=== PATIENT | female | born 1935 | race Caucasian/White ===

== ENCOUNTER → 2016-11-24 | Outpatient (CLI) | payer OTHER, MEDICARE | LOC: FIMAGING 14:33 | PROVIDERS: ATTEND Internal Medicine | DX: M48.06 Spinal stenosis, lumbar region (principal); M48.04 Spinal stenosis, thoracic region; M43.16 Spondylolisthesis, lumbar region; M51.34 Other intervertebral disc degeneration, thoracic region; M51.36 Other intervertebral disc degeneration, lumbar region; M51.37 Other intervertebral disc degeneration, lumbosacral region; M12.88 Other specific arthropathies, not elsewhere classified, other specified site ==

== ENCOUNTER → 2017-04-14 | Outpatient (CLI) | payer OTHER, MEDICARE | LOC: CIMAGING 10:47 | PROVIDERS: ATTEND Internal Medicine | DX: R10.31 Right lower quadrant pain (principal); Z78.0 Asymptomatic menopausal state; Z79.890 Hormone replacement therapy; Z90.710 Acquired absence of both cervix and uterus | CPT/HCPCS: 76856-PO ==

== ENCOUNTER → 2017-05-02 | Outpatient (CLI) | payer OTHER, MEDICARE | LOC: BRMIMAGING 09:20 | PROVIDERS: ATTEND Internal Medicine Rheumatology | DX: M81.0 Age-related osteoporosis without current pathological fracture (principal) ==

== ENCOUNTER → 2017-05-17 | Outpatient (CLI) | payer OTHER, MEDICARE | LOC: CIMAGING 08:55 | PROVIDERS: ATTEND Internal Medicine | DX: J98.4 Other disorders of lung (principal) | CPT/HCPCS: 71020; G0463 ==

== ENCOUNTER → 2017-05-24 | Outpatient (CLI) | payer OTHER, MEDICARE | LOC: CIMAGING 10:17 | PROVIDERS: ATTEND Internal Medicine | DX: R06.2 Wheezing (principal); E04.9 Nontoxic goiter, unspecified | CPT/HCPCS: 71250-PO ==

== ENCOUNTER → 2017-05-25 | Outpatient (CLI) | payer OTHER, MEDICARE | LOC: CIMAGING 07:53 | PROVIDERS: ATTEND Internal Medicine | DX: E04.2 Nontoxic multinodular goiter (principal) | CPT/HCPCS: 76536-PO; 84443-PO ==

== ENCOUNTER 2017-05-26 17:09 | Emergency (ER) | payer OTHER, MEDICARE ==
[2017-05-26] MEDS ORDERED: SKIN ADHESIVE (DERMABOND) 1 EACH TP ONE (17:52)
--- NOTE | 2017-05-26 18:05 | EDPHY ---
H & P Time Seen by Provider: 05/26/17 17:46 HPI/ROS: 81-year-old female presents complaining of laceration to her right 4th toe. She states she was preparing Thanksgiving dinner and dropped a knife on her foot accidentally. She is able to wiggle with toe, she denies numbness or tingling in her foot. Review of systems As per HPI General no fever no chills no weakness HEENT no eye pain no eye discharge. No eye redness, no sore throat Respiratory no cough, no shortness of breath Cardiac no chest pain, no peripheral edema GI no abdominal pain, no diarrhea, no constipation, no nausea, no vomiting no flank pain, no hematuria, no dysuria Musculoskeletal no myalgias, no joint pain Heme no easy bruising, no easy bleeding Endo no polyuria, no polydipsia Skin no rashes, no pruritus Neuro no syncope, no dizziness, no headaches Psych is no suicidal ideation, no homicidal ideation Past Medical/Surgical History: GERD, hypertension, hyperlipidemia, atrial fibrillation, congestive heart failure, aortic valve replacement Social History: Denies alcohol or drug use Smoking Status: Former smoker Physical Exam: 81-year-old female Alert and oriented in no acute distress nontoxic appearance, afebrile Atraumatic normocephalic Neck no JVD Lungs clear to auscultation, no respiratory distress Heart regular rate and rhythm Extremities no cyanosis clubbing edema Except Right foot, right 4th toe, 1 cm non gaping laceration at dorsal aspect of right 4th toe, full range of motion, good capillary refill, sensation intact Constitutional: Initial Vital Signs Temperature (C) 36.9 C 05/26/17 17:18 Heart Rate 83 05/26/17 17:18 Respiratory Rate 18 05/26/17 17:18 Blood Pressure 155/87 H 05/26/17 17:18 O2 Sat (%) 94 05/26/17 17:18 O2 Delivery Mode Room Air Allergies/Adverse Reactions: codeine Allergy (Verified 05/26/17 17:17) erythromycin base [Erythromycin Base] Allergy (Verified 05/26/17 17:17) hydromorphone HCl [From Dilaudid] Allergy (Verified 05/26/17 17:17) oxycodone HCl [From Percocet] Allergy (Verified 05/26/17 17:17) oxycodone terephthalate [From Percodan] Allergy (Verified 05/26/17 17:17) Home Medications: Medication Instructions Recorded Calcium Carbonate [Oyster Shell 1,000 mg PO BID 05/29/13 Calcium 500 mg (OTC)] ESZOPICLONE [Lunesta] 1 mg PO HS PRN 05/29/13 Fish Oil/Dha/Epa [Fish Oil 1,200 1 each PO DAILY 05/29/13 mg Fish Oil] Furosemide [Lasix] 40 mg PO DAILY 05/29/13 Omeprazole 20 mg PO DAILY PRN 05/29/13 Potassium Cl [Klor-Con 10 meq (RX)] 20 meq PO DAILY 05/29/13 Tramadol HCl 100 mg PO BID PRN 05/29/13 Medical Decision Making Procedures: Procedure note-laceration The wound was irrigated with copious amounts of saline. Patient tolerated procedure well. ED Course/Re-evaluation: Patient seen and evaluated for laceration to right 4th toe dorsal aspect non gaping Impression To laceration suitable for adhesive repair Plan Adhesive repair Discharge home Follow-up PCP Differential Diagnosis: Laceration, abrasion, contusion Departure - Departure Disposition: Home, Routine, Self-Care Clinical Impression: Toe laceration Condition: Good Instructions: Laceration (ED), Skin Adhesive Care (ED) Referrals: Keshawn Pradhan MD [Primary Care Provider] - As per Instructions
[2017-05-26 18:09] VITALS: BP 148/74; PULSE 82; RESP 19; TEMP 98.2; O2SAT 95
== END 2017-05-26 18:16 | disposition home or self-care (01) ==
LOC: CED 17:09
PROC: 0HQMXZZ Repair Right Foot Skin, External Approach (ICD-10-PCS; principal; 2017-05-26)
DX: S91.114A Laceration without foreign body of right lesser toe(s) without damage to nail, initial encounter (principal); I11.0 Hypertensive heart disease with heart failure; I50.9 Heart failure, unspecified; Z87.891 Personal history of nicotine dependence; W26.0XXA Contact with knife, initial encounter

== ENCOUNTER → 2017-11-17 | Outpatient (CLI) | payer OTHER, MEDICARE | LOC: CIMAGING 15:46 | PROVIDERS: ATTEND Internal Medicine | DX: M25.522 Pain in left elbow (principal) | CPT/HCPCS: 73070-PO ==

== ENCOUNTER 2017-12-09 08:15 | Emergency (ER) | payer OTHER, MEDICARE ==
--- NOTE | 2017-12-09 08:33 | EDPHY ---
HPI/HX/ROS/PE/MDM Narrative: CHIEF COMPLAINT: "I had a lousy night's sleep. Everything turned black and then I woke up." HPI: The patient is an 82 y/o female with a history of valve replacement and atrial fibrillation who arrives in the ED for evaluation stating, "I was sleeping and all the sudden everything turned black and then I woke up." She does not think she was having a dream and is adamant she was not awake when this occurred. She felt scared, but otherwise cannot describe this event further. She has been feeling normal apart from possible tendonitis in her arm. She denies chest pain, dyspnea, fever, cough, cold symptoms, sore throat, rhinorrhea, recent illness, or recent trauma. She does note she felt 3-4 "extra strong heart beats" last night and feels like she could be dehydrated this morning. She had a fainting episode 2 years ago that her mrb engineer attributed to micturition syncope, but it's not clear that the event this morning was similar. She spoke with Dr. Miller from [facility] this morning and was advised to come into the ED and that a mrb engineer from their group would evaluate her here. REVIEW OF SYSTEMS: Aside from elements discussed in the HPI, a comprehensive 10-point review of systems was reviewed and is negative. PMH: 1. Valve replacement due to aortic stenosis 2. Paroxysmal atrial fibrillation 3. Diastolic heart failure 4. Chronic hypertension 5. Hyperlipidemia 6. GERD Prior medical records reviewed including admission 05/29/13 for shortness of breath. SOCIAL HISTORY: From [place]. at bedside. Contact Center Professional: Dr. Alvarado PHYSICAL EXAM: General:Patient is alert, in no acute distress. ENT:Eyes are normal to inspection. ENT inspection normal. Neck: Normal inspection. Full range of motion. Respiratory:No respiratory distress. Breath sounds normal bilaterally. Cardiovascular: Regular rate and rhythm. Strong peripheral pulses. Normal cap refill. Abdomen:The abdomen is nontender to palpation. There are no peritoneal signs. Back: Normal to inspection. No tenderness to palpation. Skin: Normal color. No rash. Warm and dry. Extremities: Normal appearance. Full range of motion. Neuro: Oriented x3. Normal motor function. Normal sensory function. ED Course: This is an 82 y/o female with a history of heart valve repair and paroxysmal atrial fibrillation who presents for evaluation after "everything turned black" while she was sleeping. She is unable to provide further description of this event that she says occurred while she was asleep and was not associated with any other symptoms. She feels normally currently and has a normal exam. Plan for IV, labs, EKG. 1L IV NS ordered. The 12 lead EKG was interpreted by myself. Sinus mechanism. See hard copy and/ or "tracemaster" electronic copy for interpretation. Consulted with JD Jackson from [facility]. Work up here is negative. Exam remains normal. He will see if a provider is available to come down and speak with her. Reassessed patient and discussed work up. She is feeling well and would like to go home without waiting to speak with a mrb engineer. She will be discharged home with standard precautions. She is comfortable with this plan. MDM: This patient somehow presents with a syncopal episode that occurred during sleep. She is unable to describe this episode in a way that I can use to narrow down workup. We performed an extensive cardiac workup which is thankfully negative, and patient is asymptomatic. I think she is safe for further outpatient workup with her mrb engineer. I see no signs of arrhthymia, conduction abnormality, ACS or infectious process. - Data Points Laboratory Results: Laboratory Results 12/09/17 08:39 12/09/17 08:39 12/09/17 12/09/17 12/09/17 09:06 08:39 08:39 WBC 6.47 10^3/uL 10^3/uL (3.80-9.50) RBC 4.74 10^6/uL 10^6/uL (4.18-5.33) Hgb 14.7 g/dL g/dL (12.6-16.3) Hct 43.8 % % (38.0-47.0) MCV 92.4 fL fL (81.5-99.8) MCH 31.0 pg pg (27.9-34.1) MCHC 33.6 g/dL g/dL (32.4-36.7) RDW 12.5 % % (11.5-15.2) Plt Count 209 10^3/uL 10^3/uL (150-400) MPV 9.5 fL fL (8.7-11.7) Neut % (Auto) 54.3 % % (39.3-74.2) Lymph % (Auto) 32.0 % % (15.0-45.0) Roberts % (Auto) 7.9 % % (4.5-13.0) Eos % (Auto) 4.9 % % (0.6-7.6) Baso % (Auto) 0.6 % % (0.3-1.7) Nucleat RBC Rel Count 0.0 % % (0.0-0.2) Absolute Neuts (auto) 3.51 10^3/uL 10^3/uL (1.70-6.50) Absolute Lymphs (auto) 2.07 10^3/uL 10^3/uL (1.00-3.00) Absolute Monos (auto) 0.51 10^3/uL 10^3/uL (0.30-0.80) Absolute Eos (auto) 0.32 10^3/uL 10^3/uL (0.03-0.40) Absolute Basos (auto) 0.04 10^3/uL 10^3/uL (0.02-0.10) Absolute Nucleated RBC 0.00 10^3/uL 10^3/uL (0-0.01) Immature Gran % 0.3 % % (0.0-1.1) Immature Gran # 0.02 10^3/uL 10^3/uL (0.00-0.10) Sodium 143 mEq/L mEq/L (135-145) Potassium 4.3 mEq/L mEq/L (3.3-5.0) Chloride 104 mEq/L mEq/L (97-110) Carbon Dioxide 27 mEq/l mEq/l (22-31) Anion Gap 12 mEq/L mEq/L (8-16) BUN 20 mg/dL mg/dL (7-23) Creatinine 0.7 mg/dL mg/dL (0.6-1.0) Estimated GFR > 60 Glucose 99 mg/dL mg/dL (70-100) Calcium 9.5 mg/dL mg/dL (8.5-10.4) POC Troponin I 0.01 ng/mL ng/mL (0.00-0.08) Medications Given: Discontinued Medications Sodium Chloride (Ns) 1,000 mls @ 0 mls/hr IV EDNOW ONE; Wide Open PRN Reason: Protocol Stop: 12/09/17 08:36 Last Admin: 12/09/17 08:51 Dose: 1,000 mls Point of Care Test Results: Chemistry 12/09/17 09:06 POC Troponin I 0.01 ng/mL ng/mL (0.00-0.08) General Time Seen by Provider: 12/09/17 08:26 Initial Vital Signs: Initial Vital Signs Temperature (C) 36.9 C 12/09/17 08:19 Heart Rate 81 12/09/17 08:19 Respiratory Rate 18 12/09/17 08:19 Blood Pressure 183/87 H 12/09/17 08:19 O2 Sat (%) 95 12/09/17 08:19 O2 Delivery Mode Room Air Allergies/Adverse Reactions: codeine Allergy (Verified 12/09/17 08:19) erythromycin base [Erythromycin Base] Allergy (Verified 12/09/17 08:19) hydromorphone HCl [From Dilaudid] Allergy (Verified 12/09/17 08:19) oxycodone HCl [From Percocet] Allergy (Verified 12/09/17 08:19) oxycodone terephthalate [From Percodan] Allergy (Verified 12/09/17 08:19) Home Medications: Medication Instructions Recorded Calcium Carbonate [Oyster Shell 1,000 mg PO BID 05/29/13 Calcium 500 mg (OTC)] ESZOPICLONE [Lunesta] 1 mg PO HS PRN 05/29/13 Fish Oil/Dha/Epa [Fish Oil 1,200 1 each PO DAILY 05/29/13 mg Fish Oil] Furosemide [Lasix] 40 mg PO DAILY 05/29/13 Omeprazole 20 mg PO DAILY PRN 05/29/13 Potassium Cl [Klor-Con 10 meq (RX)] 20 meq PO DAILY 05/29/13 Tramadol HCl 100 mg PO BID PRN 05/29/13 Departure - Departure Disposition: Home, Routine, Self-Care Clinical Impression: possible syncope Condition: Good Instructions: Syncope (ED) Additional Instructions: Follow up with your mrb engineer in the next 2-3 days. Return to the ED for any worsening of condition. Referrals: Keshawn Pradhan MD [Primary Care Provider] - As per Instructions Myles Alvarado MD [Medical Doctor] - As per Instructions Report Scribed for: Kris Sterling Report Scribed by: Hanna Mercado Date of Report: 12/09/17 Time of Report: 08:45 Physician Review and Approval Statement: Portions of this note were transcribed by an ED scribe. I personally performed the history, physical exam, and medical decision making; and confirm the accuracy of the information in the transcribed note.
[2017-12-09] MEDS ORDERED: NS 1,000 ML IV ONE (08:35)
--- NOTE | 2017-12-09 09:00 | CPEKG ---
Heart Rate: 67 RR Interval: 896 P-R Interval: 192 QRSD Interval: 94 QT Interval: 432 QTC Interval: 456 P [place]: 74 QRS [place]: 23 T Wave [place]: 36 EKG Severity - NORMAL ECG - EKG Impression: SINUS RHYTHM EKG Impression: RATES HAVE SLOWED SINCE PRIOR ECG (SINUS TACHYCARDIA ON 29-MAY-2013) Electronically Signed By: Darian Doty 14-Dec-2017 11:34:30
[2017-12-09 09:14] LABS: PLATELET COUNT 209 10^3/uL (150-400)
[2017-12-09 10:08] VITALS: BP 131/67
== END 2017-12-09 10:07 | disposition home or self-care (01) ==
DX: E86.9 Volume depletion, unspecified (principal); I10 Essential (primary) hypertension
CPT/HCPCS: 84484-PO

== ENCOUNTER → 2017-12-14 | Outpatient (CLI) | payer OTHER, MEDICARE | LOC: BHFA 14:45 | PROVIDERS: ATTEND Nurse Practitioner Adult Health | DX: I48.91 Unspecified atrial fibrillation (principal); I10 Essential (primary) hypertension; Z95.2 Presence of prosthetic heart valve; R55 Syncope and collapse ==

== ENCOUNTER → 2017-12-21 | Outpatient (CLI) | payer OTHER, MEDICARE | LOC: BHFA 11:30 | PROVIDERS: ATTEND Internal Medicine Interventional Cardiology | DX: I48.91 Unspecified atrial fibrillation (principal); R06.02 Shortness of breath ==

== ENCOUNTER → 2017-12-29 | Outpatient (CLI) | payer OTHER, MEDICARE | LOC: BHLMT 10:00 | PROVIDERS: ATTEND Internal Medicine Cardiovascular Disease | DX: I35.9 Nonrheumatic aortic valve disorder, unspecified (principal); R06.00 Dyspnea, unspecified; I48.91 Unspecified atrial fibrillation | CPT/HCPCS: 93306-PO ==

== ENCOUNTER → 2018-01-15 | Outpatient (CLI) | payer OTHER, MEDICARE | LOC: FIMAGING 08:41 | PROVIDERS: ATTEND Physical Medicine & Rehabilitation | DX: M48.02 Spinal stenosis, cervical region (principal); M99.71 Connective tissue and disc stenosis of intervertebral foramina of cervical region ==

== ENCOUNTER → 2018-01-25 | Outpatient (CLI) | payer OTHER, MEDICARE | LOC: CIMAGING 09:52 | PROVIDERS: ATTEND Internal Medicine | DX: Z12.31 Encounter for screening mammogram for malignant neoplasm of breast (principal); Z80.3 Family history of malignant neoplasm of breast ==

== ENCOUNTER 2018-04-15 15:26 | Emergency (ER) | payer OTHER, MEDICARE ==
[2018-04-15 15:44] VITALS: BP 163/78
--- NOTE | 2018-04-15 16:04 | EDPHY ---
H & P Stated Complaint: says twisted L ankle and fell while hiking, able to bear wt but painful Time Seen by Provider: 04/15/18 15:55 HPI/ROS: CHIEF COMPLAINT: Left ankle pain HISTORY OF PRESENT ILLNESS: 82-year-old female presents with left ankle pain. She was hiking just prior to arrival when she twisted her ankle on an uneven surface. She fell onto her right side. She walked approximately 1.5 miles after the injury. She now has mild left ankle pain that increases with movement and ambulation. No right hip pain. She did not hit her head; no headache or neck pain. ROS: No numbness, weakness, bleeding, syncopal episode, other injury. - Personal History Tetanus Vaccine Date: within 10 yrs - Medical/Surgical History Hx Asthma: Yes Hx Chronic Respiratory Disease: No Hx Diabetes: No Hx Cardiac Disease: Yes Hx Renal Disease: No Hx Cirrhosis: No Hx Alcoholism: No Hx HIV/AIDS: No Hx Splenectomy or Spleen Trauma: No Other PMH: osteoporosis, gerd, cardiac valve replacement, htn, reflux, hysterectmy, asthma, implanted heart monitor, appendectomy, bilat cataract surg , skin ca lesions removed - Social History Smoking Status: Former smoker - Physical Exam Exam: Alert, pleasant Extremities: Left ankle with swelling over the lateral malleolus and of the midfoot. There is no posterior lateral malleolus tenderness, medial malleolus tenderness or proximal fifth metatarsal tenderness. The ankle is stable and the Achilles tendon is intact. Vascular: Pedal pulses 2+ Neurologic: Ankle and foot with normal sensation and strength Skin: Intact Constitutional: Initial Vital Signs Temperature (C) 37 C 04/15/18 15:40 Heart Rate 86 04/15/18 15:40 Respiratory Rate 16 04/15/18 15:40 Blood Pressure 163/78 H 04/15/18 15:40 O2 Sat (%) 96 04/15/18 15:40 O2 Delivery Mode Room Air Allergies/Adverse Reactions: bee venom protein (honey bee) Allergy (Verified 04/15/18 15:45) codeine Allergy (Verified 04/15/18 15:45) erythromycin base [Erythromycin Base] Allergy (Verified 04/15/18 15:45) hydromorphone HCl [From Dilaudid] Allergy (Verified 04/15/18 15:45) oxycodone HCl [From Percocet] Allergy (Verified 04/15/18 15:45) oxycodone terephthalate [From Percodan] Allergy (Verified 04/15/18 15:45) pineapple Allergy (Verified 04/15/18 15:45) Home Medications: Medication Instructions Recorded Calcium Carbonate [Oyster Shell 1,000 mg PO DAILY 05/29/13 Calcium 500 mg (OTC)] Omeprazole 20 mg PO DAILY PRN 05/29/13 Aspirin 81mg (*) 81 mg PO DAILY 02/07/18 Cartia XT 180mg 180 mg PO DAILY 02/07/18 Inj For Osteoporosis 04/15/18 Losartan Potassium 04/15/18 Red Yeast Rice 04/15/18 Medical Decision Making - Diagnostics Imaging Results: Ankle X-Ray 04/15/18 15:58 Impression: Distal dorsal talar avulsion and possible acute medial malleolus avulsion. Imaging: I viewed and interpreted images myself ED Course/Re-evaluation: X-ray results discussed with the patient. She has no tenderness on the medial aspect of her ankle and I do not suspect that she has an avulsion fracture of the medial malleolus. A posterior splint was placed. She will follow up with Ortho. Differential Diagnosis: Differential diagnosis includes though it is not limited to open fracture, dislocation, tendon disruption, neurovascular compromise. Departure - Departure Disposition: Home, Routine, Self-Care Clinical Impression: Avulsion fracture Condition: Good Instructions: Avulsion Fracture (ED) Additional Instructions: Take Tylenol 650 mg every 4 hours and/or Ibuprofen 600 mg every 8 hours with food as needed for pain. Apply ice for 30 minutes at a time; 2-3 times per day for the next 1-2 days. Elevate your foot whenever possible. Follow up with Orthopedics on Tuesday or Tuesday. Referrals: Berry Lambert MD [Medical Doctor] - As per Instructions (Call to make an appointment.)
[2018-04-15] MEDS ORDERED: IBUPROFEN 600 MG TAB PO ONE ×2 (16:33)
== END 2018-04-15 16:35 | disposition home or self-care (01) ==
DX: S92.102A Unspecified fracture of left talus, initial encounter for closed fracture (principal); W17.89XA Other fall from one level to another, initial encounter; Y93.01 Activity, walking, marching and hiking
CPT/HCPCS: 73610; 99283; L4386